=== PATIENT | male | born 1970 | race Caucasian/White ===

== ENCOUNTER 2023-10-12 12:37 | Outpatient (AMB) | payer OTHER, SELFPAY ==
--- NOTE | 2023-10-12 12:44 | A.OFFVIS_ITS ---
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 No previous history of any cardiac issues including coronary disease or myocardial infarction or cardiomyopathy or in fact anything cardiac in nature. 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 Then because of knee issues he had stopped exercising. Some weight gain over the last few years. He states that his blood pressure has been on the higher side but he has not been on any medications so far. He gets some random chest pains in the substernal area, completely nonexertional. Some local tenderness at times as well. Hence there is a concern. [facility] Medical History (Updated 10/12/23 @ 13:13 by Giovanny Bruce MD) Essential hypertension Surgical History (Updated 10/12/23 @ 12:47 by Carissa Heredia) Hx of right knee surgery Family History (Updated 10/12/23 @ 12:48 by Carissa Heredia) Paternal Grandmother Stroke HTN (hypertension) Social History (Updated 10/12/23 @ 12:48 by Carissa Heredia) Alcohol intake: current Alcohol intake frequency: holidays/special occasions o nly Patient Tobacco Use Status: Never used Tobacco Review of Systems Const Denies chills, Denies daytime sleepiness, Denies fatigue, Denies fever(s), Denies frequent falls, Denies night sweats, Denies snoring, Denies weakness, Denies weight gain and Denies weight loss Eyes Denies loss of vision ENT Denies dizziness and Denies hearing loss Card Denies chest pain with activity, Denies syncope, Denies rapid heart rate, Denies edema, Denies claudication, Denies leg edema, Denies lightheadedness, Denies palpitations, Denies dyspnea, Denies dyspnea on exertion and Denies orthopnea Resp Denies cough, Denies excessive phlegm production, Denies dyspnea, Denies dyspnea on exertion, Denies snoring and Denies wheezing GI Denies abdominal pain, Denies hematochezia, Denies change in bowel habits, Denies change in stool character, Denies heartburn, Denies nausea and Denies vomiting Denies hematuria, Denies dysuria and Denies urinary frequency Musc Denies arthralgias, Denies muscle weakness, Denies numbness and Denies tingling Skin/Breast Denies nail changes and Denies rash Neuro Denies Abnormal speech present, Denies dizziness, Denies syncope, Denies frequent falls, Denies loss of vision, Denies memory loss, Denies numbness, Denies tingling and Denies weakness Psych Denies depression and Denies memory loss Endo Denies fatigue and Denies palpitations Aller/Immun Denies wheezing Physical Exam Vital Signs: Last Vital Signs Pulse 60 10/12/23 12:45 BP 164/80 H 10/12/23 12:45 BMI result Body Mass Index 25.9 Const General: comfortable and no acute distress Orientation/consciousness: patient oriented x3 HEENT Other: Unremarkable Head: Yes normal to inspection Neck Neck: Yes normal visual inspection Chest Chest palpation & inspection: normal inspection of the chest Resp Auscultation: clear to auscultation bilaterally Cardio Palpation: normal PMI Heart sounds: S1 normal heart sound present, S2 normal heart sound present, no gallops, no murmurs and no rubs GI Palpation (GI): Soft to palpation Back/Spine/Pelvis Other: unremarkable Skin General skin exam: no rashes or lesions noted Neuro General: patient oriented x3 Speech: No Abnormal speech present Extrem General: Yes normal to inspection Psych Mental Status: mental status grossly normal Office Procedures EKG Details: EKG with sinus rhythm at 60/Min; no significant ST-T changes and otherwise [place]remark[place] [id number], Complete Assessment & Plan Assessment & Plan (1) Precordial chest pain: Code(s): R07.2 - Precordial pain Plan Atypical chest pain, hypertension not currently treated. We discussed about various modalities for workup of coronary disease including stress testing, calcium scoring, coronary CTA. After discussing the pros and cons of each modality we decided on starting with calcium score. If it is 0, then we will not do any further workup. If indeed is significantly positive, then may need something further. As he has had hypertension for the last few years and not taking any treatment, we will get an echocardiogram for left ventricular hypertrophy or any diastolic dysfunction. For the hypertension itself, start amlodipine 2.5 mg daily. We can titrate the dose based on blood pressure response. 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 We will follow-up once these are completed. Orders: Orders CA echo transthoracic complete Today I10 - Essential (primary) hypertension, R07.2 - Precordial pain CT Coronary Calcium Score Today R07.2 - Precordial pain Medications: New amlodipine 2.5 mg PO DAILY 90 tabs 3RF Coding Level of Care Code New Pt Level 4 (81062) Diagnoses Precordial chest pain R07.2 CPT Codes EKG - CPT: 44233-Miinxaxtvceidzoiv, Complete ([id number])
[2023-10-12 12:45] VITALS: BP 164/80; PULSE 60; BMI 25.9
== END 2023-10-12 13:21 | disposition home or self-care (01) ==
PROVIDERS: PCP Internal Medicine; Visit Provider Internal Medicine
DX: R07.2 Precordial pain (principal)
CPT/HCPCS: 93010; 99204

== ENCOUNTER → 2023-10-12 12:37 | Outpatient (BNVA) | payer OTHER, SELFPAY | PROVIDERS: PCP Internal Medicine; Visit Provider Internal Medicine | DX: R07.2 Precordial pain (principal); I10 Essential (primary) hypertension | CPT/HCPCS: 93005 ==

== ENCOUNTER → 2023-10-27 13:32 | Outpatient (REF) | payer OTHER, SELFPAY ==
--- NOTE | 2023-10-27 13:36 | CA_ITS ---
Transthoracic Echocardiogram Patient (Last, First, Middle): Jayme Kelsey, Gender: Male Date of : 1970 Age: 53 Procedure Date: 10/27/2023 Procedure Type: Transthoracic Echocardiogram Location: OP Height: 177.8 cm Weight: 80. kg BSA: 1.98 m2 Heart Rate: bpm BP: 112 / 80 mmHg Car Sealer: SUSSY Referring MD: Giovanny Bruce MD Symptoms: R07.2 - Precordial pain Study Quality: Adequate ECG Rhythm: Sinus Conclusions: - The left ventricular systolic function is normal. The calculated ejection fraction is 69% by biplane method. - No obvious valvular pathology seen on this study. Findings Left Ventricle Normal left ventricular cavity size. The left ventricular systolic function is normal. The calculated ejection fraction is 69% by biplane method. There is no evidence of regional wall motion abnormalities. Diastolic function is normal for age. There is mild septal asymmetric hypertrophy. LV peak GLS 18.6%. Right Ventricle Normal right ventricular cavity size and systolic function. Atria Both atria are normal in size. Aortic Valve There is a normal trileaflet aortic valve. There is no aortic valve stenosis. There is no aortic valve regurgitation. Mitral Valve The mitral valve appears normal. There is no mitral valve regurgitation. There is no mitral valve stenosis. Pulmonic Valve The pulmonic valve is likely normal. Tricuspid Valve Normal tricuspid valve structure. There is trace tricuspid valve regurgitation. Tricuspid regurgitation envelope is inadequate for calculation of right ventricular systolic pressure. Great Vessels The asc aorta is normal in size. Venous The inferior vena cava is normal in size and collapses greater than 50% with inspiration. Pericardium/Pleural There is no evidence of pericardial effusion. Prior Study Comparison No prior study available for comparison. Recommendations, Care & Conclusions No obvious valvular pathology seen on this study. Measurements 2D Linear Measurements IVSd: 1.13 0.6-0.9/0.6-1.0 cm LVIDd: 4.60 3.9-5.3/4.2-5.9 cm LVIDd Index: 2.32 2.4-3.2/2.2-3.1 cm/m2 LVIDs: 2.33 2.0-3.6 cm LVPWd: 0.97 0.7-1.1 cm LA Diam: 3.20 2.7-3.8/3.0-4.0 cm LAIDs Index: 1.62 1.5-2.3 cm/m2 LV Mass: 211.56 67-162/88-224 g LV Mass Index: 106.85 43-95/49-115 g/m2 LVOT Diam: 1.90 3.0+(-)1.3 cm 2D Systolic Function EF 4C: 67.70 >55% EF 2C: 70.10 >55% EF BiP: 69.40 >55% Mitral Valve MV Pk E: 0.65 MV PK A: 0.70 MV Decel Time: 266.00 E/A: 0.90 E'Lateral: 8.81 E'Medial: 7.72 E/E' Med: 8.40 E/E' Lat: 7.40 PHT: 78.00 MVA PHT: 2.82 Decel Sanders: 2.45 Aortic Valve AoV Pk Martin: 1.36 AoV Mn Martin: 0.96 AoV VTI: 0.28 AoV Pk Grad: 7.00 Aov Mn Grad: 4.00 LOYD Cont.VTI: 2.16 LVOT LVOT Pk Martin: 1.08 LVOT Mn Martin: 0.71 LVOT VTI: 0.22 LVOT Pk Grad: 5.00 LVOT Mn Grad: 2.00 LVOT Diam: 1.90 LVOT Area: 2.84 Diastolic Function MV Pk E: 0.65 MV Pk A: 0.70 E/A: 0.90 E'Medial: 7.72 E/E' Med: 8.40 E' Laterial: 8.81 E/E' Lat: 7.40 Right Ventricle TAPSE (mm): 26.40 TVS' Martin: 13.50 Tricuspid Valve RA Press: 3.00 Great Vessels Aorta Sinus of Valsalva: 4.10 2.0-3.5 cm Ao Asc: 3.30 2.1-3.4 cm Pulmonary Valve PV Pk Martin: 0.79 Peak PV Grad: 2.00 Updated in Other Vendor System with Status of Final Giovanny Bruce MD electronically signed on 10/29/2023 9:35:28 AM with status of Final
== END ==
LOC: HO.CARD 13:32
PROVIDERS: Visit Provider Internal Medicine
DX: R07.2 Precordial pain (principal); I10 Essential (primary) hypertension
CPT/HCPCS: 93306; 93356

== ENCOUNTER → 2023-10-27 13:36 | Outpatient (BNV) | payer OTHER, SELFPAY | PROVIDERS: Visit Provider Internal Medicine | DX: R07.2 Precordial pain (principal) | CPT/HCPCS: 93306 ==

== ENCOUNTER 2023-11-04 07:56 | Outpatient (AMB) | payer OTHER, SELFPAY ==
--- NOTE | 2023-11-04 08:22 | MHC.OFFVIS ---
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 Recently seen in consultation regarding chest pain. 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 Random chest pains but nonexertional. No known cardiac issues. In the past, he was a triathlete but not recently. Some weight gain as well over the last few years. Recently started amlodipine for high blood pressure. Has elevated cholesterol according to him but not on statins. Recently completed coronary CTA. [facility] Medical History (Updated 11/04/23 @ 08:50 by Giovanny Bruce MD) Atherosclerotic cardiovascular disease Essential hypertension Surgical History Hx of right knee surgery Family History Paternal Grandmother Stroke HTN (hypertension) Social History Alcohol intake: current Alcohol intake frequency: holidays/special occasions only Patient Tobacco Use Status: Never used Tobacco Review of Systems Const Denies weakness ENT Denies dizziness Card Denies chest pain, Denies chest pain with activity, Denies syncope, Denies rapid heart rate, Denies pedal edema, Denies edema, Denies leg edema, Denies lightheadedness, Denies palpitations, Denies dyspnea, Denies dyspnea on exertion and Denies orthopnea Resp Denies cough, Denies dyspnea and Denies dyspnea on exertion GI Denies hematochezia and Denies change in stool character Musc Denies abnormal gait, Denies muscle cramps, Denies muscle weakness, Denies numbness, Denies radiating pain into limb and Denies tingling Neuro Denies abnormal gait, Denies dizziness, Denies syncope, Denies numbness, Denies tingling and Denies weakness Endo Denies palpitations Physical Exam Vital Signs: Last Vital Signs Pulse 58 11/04/23 08:24 BP 146/86 H 11/04/23 08:24 BMI result Body Mass Index 25.6 Const General: comfortable and no acute distress Orientation/consciousness: patient oriented x3 HEENT Other: Unremarkable Head: Yes normal to inspection Neck Neck: Yes normal visual inspection Chest Chest palpation & inspection: normal inspection of the chest Resp Auscultation: clear to auscultation bilaterally Cardio Palpation: normal PMI Heart sounds: S1 normal heart sound present, S2 normal heart sound present, no gallops, no murmurs and no rubs GI Palpation (GI): Soft to palpation Back/Spine/Pelvis Other: unremarkable Skin General skin exam: no rashes or lesions noted Neuro General: patient oriented x3 Extrem General: Yes normal to inspection Psych Mental Status: mental status grossly normal Assessment & Plan Assessment & Plan (1) Atherosclerotic cardiovascular disease: Code(s): I25.10 - Atherosclerotic heart disease of [place] coronary artery without angina pectoris (2) Essential hypertension: Code(s): I10 - Essential (primary) hypertension Plan Coronary calcium score is 23. Distribution in the left main, LAD. Echocardiogram with LVEF of 69%. No wall motion abnormalities. Normal diastolic function. Normal peak global longitudinal strain. Findings discussed with patient. Recommend taking statins, but he would like to just think about it for now. Once he is accepting it, may start either Lipitor or Crestor. Request for lipids given. He thinks his prior LDLs were around 160 mg/dL. With regard to blood pressure, today it is on the higher side but he recently started amlodipine. Home blood pressures are apparently only in the 120s according to him. Otherwise, he is planning to start a new diet and lose weight back to his usual baseline which was in the 150s or so. We will plan to meet in about 6 months' time. Total time spent including review of data, counseling, documentation, coordination care-32 minutes. Orders: Orders Lipid Panel 11/15/23 E78.00 - Pure hypercholesterolemia, unspecified Coding Level of Care Code Est Pt Level 4 (17766) Diagnoses Atherosclerotic cardiovascular disease I25.10 Essential hypertension I10
[2023-11-04 08:24] VITALS: BP 146/86; PULSE 58; BMI 25.6
== END 2023-11-04 08:48 | disposition home or self-care (01) ==
PROVIDERS: PCP Internal Medicine; Visit Provider Internal Medicine
DX: I25.10 Atherosclerotic heart disease of native coronary artery without angina pectoris (principal); I10 Essential (primary) hypertension
CPT/HCPCS: 99214

== ENCOUNTER → 2023-11-04 07:56 | Outpatient (BNVA) | payer OTHER, SELFPAY | PROVIDERS: Visit Provider Internal Medicine ==

== ENCOUNTER 2024-03-02 08:17 | Outpatient (REF) | payer BC, SELFPAY ==
--- NOTE | ~2024-03-02 | XR_ITS ---
EXAMINATION: XR LUMBOSACRAL SPINE CLINICAL INFORMATION: Low back pain COMPARISON: None available. TECHNIQUE: Three views of the lumbosacral spine. FINDINGS: The vertebral bodies and posterior elements are normal. The disc spaces are preserved. There is mild retrolisthesis of L5 with respect to S1. The paraspinal soft tissues are normal. XR/XR lumbar spine 2-3V IMPRESSION: 1. No acute bony abnormality. 2. Mild retrolisthesis of L5 with respect to S1.
[2024-03-02 08:56] LABS: Appearance Urine Cloudy; Color Urine Yellow; Glucose Urine UA Negative (Negative); Leukocyte Esterase Urine Trace (Negative); Nitrite Urine Negative (Negative); PH 8.5 (5.0-9.0); UMIC TRIGGER UACC YES; Urine Blood Negative (Negative); Urine Ketones Negative (Negative); Urine Protein Negative (Neg-Trace)
[2024-03-02 09:06] LABS: Bacteria Urine None Seen (None Seen); Hyaline Casts Urine 0-2 /LPF (0-2); Other Crystals Urine Present; RBC Urine 0-2 /HPF (0-2); Squamous Epithelial Cell Urine 0-2 /HPF (0-2); WBC Urine 0-5 /HPF (0-5)
[2024-03-02 09:26] LABS: Anion Gap 9 (12-20); Blood Urea Nitrogen 12 mg/dL (9-16); Calcium 9.5 mg/dL (8.4-10.2); Carbon Dioxide 30 mmol/L (22-29); Chloride 108 mmol/L (96-108); Cholesterol 202 mg/dL (<200); Estimated Glomerular Filt Rate > 60; Glucose Random 101 mg/dL (60-115); HDL Cholesterol 42 mg/dL (>40); LDL Cholesterol Calculated 134 mg/dL (<100); Potassium 4.5 mmol/L (3.3-5.1); Sodium 142 mmol/L (135-145); Triglycerides 134 mg/dL (<150)
[2024-03-02 09:43] LABS: TSH reflex Free T4 1.13 uIU/mL (0.32-4.0)
== END 2024-03-02 08:18 | disposition home or self-care (01) ==
LOC: HO.XRAY 08:17
PROVIDERS: PCP Internal Medicine; Visit Provider Internal Medicine
DX: M54.31 Sciatica, right side (principal); E78.00 Pure hypercholesterolemia, unspecified; R31.29 Other microscopic hematuria
CPT/HCPCS: 36415; 72100; 80048; 80061; 81001; 84443

== ENCOUNTER 2024-06-15 13:07 | Outpatient (AMB) | payer BC, SELFPAY ==
[2024-06-15 13:11] VITALS: BP 130/70; PULSE 74; BMI 26.6
--- NOTE | 2024-06-15 13:11 | A.OFFVIS_ITS ---
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 He underwent calcium scoring CT scan recently which was slightly positive. Overall, he states he feels fine. No concerning symptoms whatsoever. No angina. He recently started amlodipine for high blood pressure. Cholesterol is slightly high but he prefers not to be on statins at this time. Otherwise, doing fine. [facility] Medical History (Updated 11/04/23 @ 08:50 by Giovanny Bruce MD) Atherosclerotic cardiovascular disease Essential hypertension Surgical History Hx of right knee surgery Family History (Updated 06/15/24 @ 13:14 by Theodora Crow CMA) Paternal Grandmother Stroke HTN (hypertension) Mother DM2 (diabetes mellitus, type 2) Social History Alcohol intake: current Alcohol intake frequency: holidays/special occasions only Patient Tobacco Use Status: Never used Tobacco Review of Systems Const Denies chills, Denies fatigue, Denies fever(s), Denies weight gain and Denies weight loss ENT Denies dizziness Card Denies chest pain, Denies leg edema, Denies lightheadedness, Denies palpitations, Denies dyspnea on exertion, Denies orthopnea and Denies other Resp Denies cough and Denies dyspnea on exertion GI Denies hematochezia and Denies change in stool character Musc Denies abnormal gait, Denies muscle weakness, Denies numbness, Denies radiating pain into limb and Denies tingling Neuro Denies abnormal gait, Denies dizziness, Denies numbness and Denies tingling Endo Denies fatigue and Denies palpitations Physical Exam Vital Signs: Last Vital Signs Pulse 74 06/15/24 13:11 BP 130/70 06/15/24 13:11 BMI result Body Mass Index 26.6 Const General: comfortable and no acute distress Orientation/consciousness: patient oriented x3 HEENT Other: Unremarkable Head: Yes normal to inspection Neck Neck: Yes normal visual inspection Chest Chest palpation & inspection: normal inspection of the chest Resp Auscultation: clear to auscultation bilaterally Cardio Palpation: normal PMI Heart sounds: S1 normal heart sound present, S2 normal heart sound present, no gallops, no murmurs and no rubs GI Palpation (GI): Soft to palpation Back/Spine/Pelvis Other: unremarkable Skin General skin exam: no rashes or lesions noted Neuro General: patient oriented x3 Extrem General: Yes normal to inspection Psych Mental Status: mental status grossly normal Assessment & Plan Assessment & Plan (1) Atherosclerotic cardiovascular disease: Code(s): I25.10 - Atherosclerotic heart disease of [place] coronary artery without angina pectoris Category: Medical (2) Essential hypertension: Code(s): I10 - Essential (primary) hypertension Category: Medical Plan Coronary calcium score is 23. Distribution in the left main, LAD. Echocardiogram with LVEF of 69%. No wall motion abnormalities. Normal diastolic function. Normal peak global longitudinal strain. With regard to blood pressure, he is on a small dose of Amlodipine. Blood pressure seems significantly improved and home blood pressures are close to normal. With regard to dyslipidemia, per patient, LDL was as much as the 160s. In the most recent check, in the 130s. Again discussed about statins but he would rather try to do it with lifestyle measures only. He would like to lose more weight, eat healthy and then recheck lipids in a few months and then decide. He will call us with any ongoing concerns. Follow-up in 1 year. Orders: Orders Lipid Panel Today E78.5 - Hyperlipidemia, unspecified, I25.10 - Atherosclerotic heart disease of [place] coronary artery without angina pectoris Liver Panel Today I25.10 - Atherosclerotic heart disease of [place] coronary artery without angina pectoris Coding Level of Care Code Est Pt Level 3 (99149) Diagnoses Atherosclerotic cardiovascular disease I25.10 Essential hypertension I10
== END 2024-06-15 13:40 | disposition home or self-care (01) ==
PROVIDERS: PCP Internal Medicine; Visit Provider Internal Medicine
DX: I25.10 Atherosclerotic heart disease of native coronary artery without angina pectoris (principal); I10 Essential (primary) hypertension
CPT/HCPCS: 99213

== ENCOUNTER → 2024-06-15 13:07 | Outpatient (BNVA) | payer BC, SELFPAY | PROVIDERS: PCP Internal Medicine; Visit Provider Internal Medicine ==

== ENCOUNTER 2025-03-23 08:43 | Outpatient (REF) | payer BC, SELFPAY ==
--- OUTSIDE RECORDS SUMMARY | 2025-03-23 08:52 | XMS_ITS | Clinical Summary ---
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 40 capsule 1 4 Active amLODIPine (Norvasc) 5 MG tabletIndications :Primary hypertension Take 1 tablet (5 mg) by mouth Once per day. 90 tablet 3 5 09/13/20 27 Active Active Problems Problem Noted Date Diagnosed Date Allergic rhinitis 05/08/2023 Gastroesophageal reflux 05/08/2023 Seasonal allergies 05/08/2023 Chronic sinusitis 01/27/2018 Encounters Date Type Department Care Team Description 03/20/2025 Orders Only [facility] [address] [place] [address] Marquise Munguia MD Primary hypertension (Primary Dx); Hypercholesterolemia from Last 3 Months Social History Tobacco Use Types Packs/Day Years Used Date Smoking Tobacco: Never Smokeless Tobacco: Never Tobacco Cessation:Counseling Given: No Sex and Gender Information Value Date Recorded Sex Assigned at Male 07/21/2022 10:40 AM EDT Legal Sex Male 10:40 AM EDT Gender Identity Male 07/21/2022 10:40 AM EDT Sexual Orientation Straight 07/21/2022 10 :40 AM EDT Last Filed Vital Signs Vital Sign Reading Time Taken Comments Blood Pressure 136/85 02/17/2024 9:00 AM EDT Pulse 64 02/17/2024 9:00 AM EDT Temperature 37.6 C (99.6 F) 02/17/2024 9:00 AM EDT Respiratory Rate 20 02/17/2024 9:00 AM EDT Oxygen Saturation 98% 02/17/2024 9:00 AM EDT Inhaled Oxygen Concentration - - Weight 83 kg (183 lb) 02/17/2024 9:00 AM EDT Height 177.8 cm (5' 10 ) 02/17/2024 9:00 AM EDT Body Mass Index 26.26 02/17/2024 9:00 AM EDT Plan of Treatment Upcoming Encounters Date Type Department Care Team (Late st Contact Info) Description 04/07/2025 3:30 PM EDT Office Visit [facility] [address], [place] [id number] Marquise Munguia MD [address] [place] [address] Health Maintenance Due Date Last Done Comments CT Colonography 1970 Colonoscopy 1970 Depression Screening 1970 FIT DNA/Cologuard 1970 HIV Screening 1970 SDOH Screening 1970 Sigmoidoscopy 1970 Disability Screening 1970 Alcohol/Substance Use Screening 1981 Hepatitis C Screening 1987 Hepatitis B Vaccines (1 of 3 - 19+ 3-dose series) 1988 Colorectal Cancer Screening 12/31/2021 FIT 12/31/2021 12/31/2020 FOBT 12/31/2021 12/31/2020 DTaP/Tdap/Td Vaccines (1 - Tdap) 06/01/2022 05/31/2022, 02/19/2020 Tobacco Screening 05/08/2024 05/08/2023 COVID-19 Vaccine ( season) 2024 10/12/2023, 07/07/2022, 12/24/2021, Additional history exists Influenza Vaccine (#1) 2025 , 07/03/2021, 06/25/2020, Additional history exists Lipid Panel 03/02/2029 03/02/2024 RSV Patients and Patients Aged 60 years or older (1 - 1-dose 75+ series) 2044 Zoster Vaccines Completed 01/13/2023, 07/11/2022 Pneumococcal Vaccine: 50+ Years Completed 11/13/2024 HIB Vaccines Aged Out No longer eligi ble based on patient's age to complete this topic HPV Vaccines Aged Out No longer eligi ble based on patient's age to complete this topic Hepatitis A Vaccines Aged Out No long er eligible based on patient's age to complete this topic IPV Vaccines Aged Out No longer eligi ble based on patient's age to complete this topic Meningococcal B Vaccine Aged Out No l onger eligible based on patient's age to complete this topic Meningococcal Vaccine Aged Out No luis zenaida eligible based on patient's age to complete this topic RSV under 20 months Aged Out No longe r eligible based on patient's age to complete this topic Rotavirus Vaccines Aged Out No longer eligible based on patient's age to complete this topic Procedures Procedure Name Priority Date/Time Associated Diagnosis Comments LIPID PANEL, STANDARD Routine 03/02/2024 8:28 AM EDT Hypercholesterolemi a from Last 3 Months or Most Recently Relevant to Health Maintenance Results * (ABNORMAL) Lipid Panel, Standard (03/02/2024 8:28 AM EDT) Triglycerides 134 <150 mg/dL [facility] Comment:Desirable Triglyceri de: less than 150 mg/dLBorderline High Triglyceride 150-199 mg/dLHigh Triglyceride: 200-499 mg/dLVery High Triglyceride: greater than or equal to 5OO mg/dL Cholesterol 202(H) <200 mg/dL [facility] Comment:Desirable Cholestero l: less than 200 mg/dLBorderline High Cholesterol: 200-239 mg/dLHigh Cholesterol: greater than 239 mg/dL LDL Cholesterol Calculated 134(H) <100 mg/dL [facility] Comment:Desirable LDL: less than 100 mg/dLNear Optimal/Above Optimal LDL: 110- 129 mg/dLBorderline High LDL: 130-159 mg/dLHigh LDL: 160-189 mg/dLVery High LDL: greater than or equal to 190 mg/dL HDL Cholesterol 42 >40 mg/dL [facility] Comment:Desirable HDL: great er than 40 mg/dL Note: This HDL assay may give artificially low results in patients with liver disease. 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
[2025-03-23 09:17] LABS: MANUAL DIFF FLAG NO
[2025-03-23 09:39] LABS: Hematocrit 44.1 % (42.0-52.0); Hemoglobin 15.5 g/dl (14.0-18.0); Imm Gran Abs Auto 0.01 X10*3/uL (0.00-0.03); Imm Gran Pct Auto 0.2 % (0.0-0.4); Lymphocytes Absolute Auto 3.3 X10*3/uL (1.2-4.9); Mean Corpuscular HGB Conc 35.1 g/dl (31.0-36.0); Mean Corpuscular Hemoglobin 30.8 pg (27.0-33.0); Mean Corpuscular Volume 87.5 fL (80.0-98.0); NRBC Abs Auto 0.000 X10*3/uL (0.0-0.012); NRBC Pct Auto 0.0 /100WBC (0.0-0.2); Platelet Count 279 X10*3/uL (160-400); Red Blood Count 5.04 X10*6/uL (4.60-5.80); White Blood Count 5.6 X10*3/uL (4.8-10.8)
[2025-03-23 10:17] LABS: Alanine Aminotransferase 33 U/L (0-40); Albumin Level 4.6 g/dL (3.5-5.0); Alkaline Phosphatase 90 U/L (39-117); Anion Gap 9 (12-20); Aspartate Amino Transferase 31 U/L (5-37); Blood Urea Nitrogen 9 mg/dL (9-16); Calcium 9.1 mg/dL (8.4-10.2); Carbon Dioxide 27 mmol/L (22-29); Chloride 110 mmol/L (96-108); Cholesterol 201 mg/dL (<200); Estimated Glomerular Filt Rate > 60; HDL Cholesterol 38 mg/dL (>40); Potassium 4.7 mmol/L (3.3-5.1); Sodium 141 mmol/L (135-145); Total Protein 7.3 g/dL (6.5-8.0); Triglycerides 125 mg/dL (<150)
== END 2025-03-23 08:44 | disposition home or self-care (01) ==
LOC: HO.LAB 08:43
PROVIDERS: PCP Internal Medicine; Visit Provider Internal Medicine
DX: I10 Essential (primary) hypertension (principal); E78.00 Pure hypercholesterolemia, unspecified
CPT/HCPCS: 36415; 80053; 80061; 83695; 84443; 85025

== ENCOUNTER 2025-06-17 08:05 | Outpatient (REF) | payer BC, SELFPAY ==
[2025-06-23 12:07] LABS: Testosterone, Free 51.8 pg/mL (35.0-155.0)
== END 2025-06-17 08:06 | disposition home or self-care (01) ==
LOC: HO.LAB 08:05
PROVIDERS: PCP Internal Medicine; Visit Provider Internal Medicine
DX: R53.83 Other fatigue (principal)
CPT/HCPCS: 36415; 84402; 84403; 84443